=== PATIENT | female | born 1965 | race Caucasian/White ===

== ENCOUNTER 2023-12-13 13:31 | Emergency (ER) | payer MEDICARE, OTHER ==
[~2023-12-13] VITALS: Ht 162.6 cm; Wt 75.7 kg
[2023-12-13] MEDS ORDERED: METOCLOPRAMIDE HCL 10 MG TABLET ONE (14:44)
[2023-12-13] MEDS ORDERED: IBUPROFEN 800 MG TABLET ONE (14:44)
[2023-12-13] MEDS: IBUPROFEN 800 MG TABLET PO ONE (14:46)
[2023-12-13] MEDS: METOCLOPRAMIDE HCL 10 MG TABLET PO ONE (14:47)
[2023-12-13] MEDS ORDERED: HYDR-4209 PO (15:29)
[2023-12-13] MEDS ORDERED: NAPR-1164 PO (15:29)
[2023-12-13] MEDS ORDERED: CYCL10TA9 PO (15:29)
[2023-12-13 15:50] VITALS: BP 128/88; TEMP 97; O2SAT 97
[2023-12-13] MEDS ORDERED: HYDR-3972 PO (17:34)
== END 2023-12-13 15:51 | disposition home or self-care (01) ==
LOC: ER 13:31
DX: S16.1XXA Strain of muscle, fascia and tendon at neck level, initial encounter (principal); F07.81 Postconcussional syndrome; S13.4XXA Sprain of ligaments of cervical spine, initial encounter; E11.9 Type 2 diabetes mellitus without complications; Z79.891 Long term (current) use of opiate analgesic; Z79.899 Other long term (current) drug therapy; V49.88XA Car occupant (driver) (passenger) injured in other specified transport accidents, initial encounter; Y93.89 Activity, other specified; Y92.89 Other specified places as the place of occurrence of the external cause; Y99.8 Other external cause status
CPT/HCPCS: 70450; 72125; A4606; A4663; J8597